=== PATIENT | female | born 1990 | race Caucasian/White ===

== ENCOUNTER 2022-12-01 03:46 | Emergency (ER) | payer BC ==
[~2022-12-01] VITALS: Ht 157.5 cm; Wt 52.2 kg
[2022-12-01 04:34] LABS: *BILIRUBIN,URIN NEGATIVE (NEGATIVE); *BLOOD, URINE 3+ (NEGATIVE); *CLARITY,URINE TURBID (CLEAR); *COLOR,URINE AMBER (YELLOW); *KETONES,URINE TRACE (NEGATIVE); *UROBILINOGEN,URINE 0.2 E.U./dl (NORMAL); LEUKOCYTE ESTERASE ,URINE TRACE (NEGATIVE); NITRITE, URINE NEGATIVE (NEGATIVE); UGLUCOSE NEGATIVE (NEGATIVE)
[2022-12-01 04:37] LABS: *PROTEIN,URINE 3+ (NEGATIVE)
[2022-12-01 04:38] LABS: *URINE HCG, QUAL NEGATIVE (NEGATIVE)
[2022-12-01 04:43] LABS: BACTERIA,URINE MANY /HPF (NONE SEEN); SQUAMOUS EPITHELIAL CELL,UR FEW /HPF (NONE SEEN)
[2022-12-01 05:00] LABS: RBC,URINE 80-100 /HPF (0-3)
[2022-12-01 05:01] LABS: WBC,URINE 50-80 /HPF (0-3)
[2022-12-01 05:06] LABS: BASOPHILS % (AUTO) 0.1 % (0.0-2.0); DIFFERENTIAL COMMENT 0; EOSINOPHILS % (AUTO) 0.3 % (0.0-7.0); HEMOGLOBIN 13.4 g/dL (10.9-14.3); LYMPHOCYTES # (AUTO) 1.3 K/uL (0.8-4.8); LYMPHOCYTES % (AUTO) 7.3 % (20.5-51.5); MEAN CORPUSCULAR HEMOGLOBIN 30.4 uug (24.7-32.8); MEAN CORPUSCULAR HGB CONC 33 g/dL (32.3-35.6); MEAN CORPUSCULAR VOLUME 93.1 fL (75.5-95.3); MONOCYTES # (AUTO) 0.7 K/uL (0.1-1.30); MONOCYTES % (AUTO) 4.2 % (0.0-11.0); NEUTROPHILS # (AUTO) 15.5 K/uL (1.8-8.9); NEUTROPHILS % (AUTO) 88.1 % (38.5-71.5); PLATELET COUNT (AUTO) 292 K/uL (179-408); RED CELL DISTRIBUTION WIDTH 13.9 % (12.3-17.7); WHITE BLOOD COUNT (AUTO) 17.6 K/uL (3.8-11.8)
[2022-12-01 05:18] LABS: CALCIUM 9.1 mg/dL (8.5-10.1); CREATININE 0.8 mg/dL (0.6-1.3)
[2022-12-01 05:24] LABS: ALBUMIN 4.1 g/dL (3.4-5.0); BILIRUBIN,TOTAL 0.2 mg/dL (0.2-1.0); TOTAL PROTEIN, SERUM 7.9 g/dL (6.4-8.2)
[2022-12-01] MEDS ORDERED: LIDOCAINE HCL 1% 20 ML VIAL ONE (05:45)
[2022-12-01] MEDS ORDERED: CEFTRIAXONE 1 G VIAL ONE (05:45)
[2022-12-01] MEDS ORDERED: CEFTRIAXONE 1 G VIAL IM ONE (05:45)
[2022-12-01] MEDS ORDERED: CEPH500C2 PO (06:54)
[2022-12-01] MEDS ORDERED: PHEN-704 PO (06:54)
[2022-12-01 07:07] VITALS: BP 110/60; TEMP 97.8; O2SAT 99
== END 2022-12-01 07:08 | disposition home or self-care (01) ==
LOC: ER 04:10
DX: N30.01 Acute cystitis with hematuria (principal); Z79.899 Other long term (current) drug therapy
CPT/HCPCS: 99285; 74176; 80053; 81001; 84703; 85025; 84145; 86140; 36415; 96372; J0696; J3490; A4663